=== PATIENT | female | born 1960 | race Caucasian/White ===

== ENCOUNTER 2021-09-23 14:47 | Emergency (ER) | payer OTHER ==
[~2021-09-23] VITALS: Ht 170.2 cm; Wt 63.6 kg
[2021-09-23] MEDS ORDERED: ARMO90TA PO (14:58)
[2021-09-23] MEDS ORDERED: PROG1CAP9 PO (14:58)
[2021-09-23] MEDS ORDERED: FISH1000 PO (14:58)
[2021-09-23] MEDS ORDERED: VITMTA PO (14:58)
[2021-09-23] MEDS ORDERED: ESTR1TAB PO (14:58)
[2021-09-23] MEDS ORDERED: CVS1CAP2 PO (14:58)
[2021-09-23] MEDS ORDERED: CYCLOBENZAPRINE 5MG TABLET PO ONE (16:30)
[2021-09-23] MEDS ORDERED: CYCL5TAB PO (16:39)
[2021-09-23] MEDS ORDERED: PRED20TA PO (16:39)
[2021-09-23 16:52] VITALS: BP 161/85
== END 2021-09-23 17:10 | disposition home or self-care (01) ==
LOC: M ED 14:47
DX: S39.92XA Unspecified injury of lower back, initial encounter (principal); X58.XXXA Exposure to other specified factors, initial encounter; Y92.9 Unspecified place or not applicable; Y93.9 Activity, unspecified; Y99.9 Unspecified external cause status; Z88.2 Allergy status to sulfonamides